=== PATIENT | female | born 1960 | race Caucasian/White ===

== ENCOUNTER 2020-04-19 13:17 | Emergency (ER) | payer MEDICARE, OTHER ==
[~2020-04-19] VITALS: Ht 167.7 cm; Wt 68.3 kg
--- NOTE | 2020-04-19 13:28 | NUR ---
Brought to room ambulatory after stopping at bathroom to request a UA. Pt just voided before arriving and unable to void now. NIBP compromised as patient continues to talk on phone and keeps bending arm, initial read 144/120. Await pt to hand phone up.
[2020-04-19] MEDS ORDERED: LAMO200T5 (13:51)
[2020-04-19] MEDS ORDERED: EXEM25TA4 (13:51)
[2020-04-19] MEDS ORDERED: ACHD5005 (13:51)
[2020-04-19] MEDS ORDERED: CLON1TAB13 (13:51)
[2020-04-19] MEDS ORDERED: OXYB5TAB13 (13:51)
[2020-04-19] MEDS ORDERED: PRAV20TA3 (13:51)
[2020-04-19] MEDS ORDERED: CARI6CAP (13:51)
[2020-04-19] MEDS ORDERED: QUET100T33 (13:51)
[2020-04-19] MEDS ORDERED: LEVO50TA6 (13:51)
[2020-04-19] MEDS ORDERED: BUSP15TA60 (13:51)
[2020-04-19] MEDS ORDERED: NF-ZOL12.5 (13:51)
[2020-04-19] MEDS ORDERED: NITR100C10 (13:51)
[2020-04-19] MEDS ORDERED: SPIR50TA4 (13:51)
[2020-04-19] MEDS ORDERED: CARV12.53 (13:51)
[2020-04-19] MEDS ORDERED: HYDR25TA4 (13:51)
[2020-04-19] MEDS ORDERED: POTA20TA15 (13:51)
[2020-04-19] MEDS ORDERED: GABA-486 (13:51)
[2020-04-19] MEDS ORDERED: FAMO40TA6 (13:51)
[2020-04-19] MEDS ORDERED: LOSARTAN (13:51)
[2020-04-19] MEDS ORDERED: PANT40TA52 (13:51)
--- NOTE | 2020-04-19 13:56 | ED General ---
General Chief Complaint: General Problems/Pain Stated Complaint: FALL; ABD PAIN History of Present Illness Date Seen by Provider: Apr 19, 2020 Time Seen by Provider: 13:40 Initial Comments Patient is a 60-year-old female who presents with epigastric pain and burning the past several hours. Patient has history of ovarian cancer with total hysterectomy, ventral wall hernia repair and recent fall 10 days ago resulting on left-sided rib fractures. Patient states she's been on pain medication does not bowel movement a week. She denies nausea vomiting and is able to pass flatus. No fever chills, flank pain, no urinary frequency urgency or burning. No other acute symptoms or complaints. Patient is currently visiting from out of town and had repairs performed by Dr. Kilo Brasher at [facility]. Timing/Duration: 4-6 Hours Severity: Mild Associated Systoms: Denies Symptoms Allergies and Home Medications Allergies Uncoded Allergies: Tesenex (Adverse Reaction, Unknown, 04/19/20) Patient reports this is med allergic to Patient Home Medication List Home Medication List Reviewed: Yes Review of Systems Review of Systems Constitutional: see HPI EENTM: see HPI Respiratory: see HPI Cardiovascular: see HPI Gastrointestinal: see HPI Genitourinary: see HPI Musculoskeletal: see HPI Skin: see HPI Psychiatric/Neurological: See HPI Hematologic/Lymphatic: See HPI Immunological/Allergic: see HPI All Other Systems Reviewed Negative Unless Noted: Yes Past Weyttup-Grogsc-Xjwfyp Hx Past Med/Social Hx: Reviewed Nursing Past Med/Soc Hx Patient Social History Recent Foreign Travel: No Contact w/Someone Who Travel: No Physical Exam Vital Signs Vital Signs - First Documented 04/19/20 13:28 Temp 36.8 Pulse 126 Resp 18 B/P (MAP) 144/120 (128) Pulse Ox 95 O2 Delivery Room Air Capillary Refill : Height, Weight, BMI Height: '" Weight: lbs. oz. 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 Norm as Tested Reflexes: 4+ Bicep (R), 4+ Bicep (L), 4+ Tricep (R) Skin: Normal Color Lymphatic: No Adenopathy Focused Exam Sepsis Stage: Ruled Out Progress/Results/Core Measures Suspected Sepsis SIRS Temperature: Pulse: Respiratory Rate: Laboratory Tests 04/19/20 14:05: White Blood Count 9.2 Blood Pressure / Mean: Laboratory Tests 04/19/20 14:05: Creatinine 1.15, Platelet Count 576H, Total Bilirubin 0.4 Results/Orders Lab Results Laboratory Tests Test 04/19/20 14:05 04/19/20 14:24 Range/Units White Blood Count 9.2 4.3-11.0 10^3/uL Red Blood Count 3.96 L 4.35-5.85 10^6/uL Hemoglobin 12.5 11.5-16.0 G/DL Hematocrit 37 35-52 % Mean Corpuscular Volume 94 80-99 FL Mean Corpuscular Hemoglobin 32 25-34 PG Mean Corpuscular Hemoglobin Concent 34 32-36 G/DL Red Cell Distribution Width 13.1 10.0-14.5 % Platelet Count 576 H 130-400 10^3/uL Mean Platelet Volume 8.4 7.4-10.4 FL Immature Granulocyte % (Auto) 3 % Neutrophils (%) (Auto) 63 42-75 % Lymphocytes (%) (Auto) 23 12-44 % Monocytes (%) (Auto) 9 0-12 % Eosinophils (%) (Auto) 1 0-10 % Basophils (%) (Auto) 1 0-10 % Neutrophils # (Auto) 5.8 1.8-7.8 X 10^3 Lymphocytes # (Auto) 2.1 1.0-4.0 X 10^3 Monocytes # (Auto) 0.9 0.0-1.0 X 10^3 Eosinophils # (Auto) 0.1 0.0-0.3 10^3/uL Basophils # (Auto) 0.1 0.0-0.1 10^3/uL Immature Granulocyte # (Auto) 0.3 H 0.0-0.1 10^3/uL Sodium Level 133 L 135-145 MMOL/L Potassium Level 4.2 3.6-5.0 MMOL/L Chloride Level 97 L 98-107 MMOL/L Carbon Dioxide Level 28 21-32 MMOL/L Anion Gap 8 5-14 MMOL/L Blood Urea Nitrogen 18 7-18 MG/DL Creatinine 1.15 0.60-1.30 MG/DL Estimat Glomerular Filtration Rate 48 BUN/Creatinine Ratio 16 Glucose Level 84 70-105 MG/DL Calcium Level 8.8 8.5-10.1 MG/DL Corrected Calcium 8.8 8.5-10.1 MG/DL Total Bilirubin 0.4 0.1-1.0 MG/DL Aspartate Amino Transf (AST/SGOT) 17 5-34 U/L Alanine Aminotransferase (ALT/SGPT) 13 0-55 U/L Alkaline Phosphatase 85 40-136 U/L C-Reactive Protein 0.14 <0.50 MG/DL Total Protein 6.4 6.4-8.2 GM/DL Albumin 4.0 3.2-4.5 GM/DL Lipase 79 H 8-78 U/L Urine Color YELLOW Urine Clarity CLEAR Urine pH 7.0 5-9 Urine Specific [place] 1.015 L 1.016-1.022 Urine Protein NEGATIVE NEGATIVE Urine Glucose (UA) NEGATIVE NEGATIVE Urine Ketones NEGATIVE NEGATIVE Urine Nitrite NEGATIVE NEGATIVE Urine Bilirubin NEGATIVE NEGATIVE Urine Urobilinogen 0.2 < = 1.0 MG/DL Urine Leukocyte Esterase 1+ H NEGATIVE Urine RBC (Auto) NEGATIVE NEGATIVE Urine RBC 0-2 /HPF Urine WBC 5-10 H /HPF Urine Squamous Epithelial Cells 2-5 /HPF Urine Crystals NONE /LPF Urine Bacteria TRACE /HPF Urine Casts NONE /LPF Urine Mucus NEGATIVE /LPF Urine Culture Indicated YES My Orders Orders - MORE JEFFERS DO Cbc With Automated Diff (04/19/20 13:49) Comprehensive Metabolic Panel (04/19/20 13:49) Lipase (04/19/20 13:49) Crp Fs (04/19/20 13:49) Ua Culture If Indicated (04/19/20 13:49) Acute Abd Series (04/19/20 13:49) Urine Culture (04/19/20 14:24) Vital Signs/I&O 04/19/20 13:28 Temp 36.8 Pulse 126 Resp 18 B/P (MAP) 144/120 (128) Pulse Ox 95 O2 Delivery Room Air Capillary Refill : Departure Communication (Admissions) Acute abdominal series: No bowel obstruction Lab and imaging studies reviewed. No obvious abnormalities with exception of constipation. Abdomen soft nonsurgical. Patient ate just prior to coming in the emergency department and took her psychotropic medications likely contributing to moderately low blood pressure. She is asymptomatic when standing and walking around the ED. Will discharge with instructions to treat constipation follow up with PCP for further evaluation of abdominal pain. Return precautions reviewed. Patient verbalizes understanding agreement discharge instructions prior to departure. Impression Primary Impression: Abdominal pain Additional Impression: Constipation Disposition: HOME, SELF-CARE Condition: Stable Departure-Patient Inst. Referrals: NO,LOCAL PHYSICIAN (PCP) Primary Care Physician Patient Instructions: Constipation, Adult ED Add. Discharge Instructions: You were evaluated in the emergency department for abdominal pain. Lab and imaging studies were performed and are nondiagnostic. Please increase fluids and drink one bottle of magnesium citrate twice daily for the next 3 days. Follow-up with your PCP for reevaluation. All discharge instructions reviewed with patient and/or family. Voiced understanding. MORE JEFFERS DO Apr 19, 2020 13:56
--- NOTE | 2020-04-19 14:15 | NUR ---
Returned from xray via WC. Patient is on phone again and wishes monitors not applied at this time.
--- NOTE | 2020-04-19 14:25 | Diagnostic Imaging Report ---
INDICATION: Fall and abdominal pain. TIME OF EXAM: 02:07 p.m. FINDINGS: The heart size is normal. Lungs are clear apart from minimal atelectasis in the left base. No pneumothorax is identified. There is no free air. There are postop changes in the abdomen. Bowel gas pattern appears nonobstructed. There is moderate stool in the right colon. No pathologic calcifications are seen. There do appear to be fractures involving the lower left anterior approximately seventh, eighth, and ninth ribs. IMPRESSION: 1. Left-sided rib fractures. There is minimal atelectasis in the left base. No pneumothorax is seen. 2. Moderate stool in the right colon. No acute feature in the abdomen is identified. Dictated by: Dictated on workstation # [id number]
[2020-04-19 14:35] LABS: HEMATOCRIT 37 % (35-52); HEMOGLOBIN 12.5 G/DL (11.5-16.0); LYMPHOCYTES % (AUTO) 23 % (12-44); MEAN CORPUSCULAR HEMOGLOBIN 32 PG (25-34); MEAN CORPUSCULAR HGB CONC 34 G/DL (32-36); MEAN CORPUSCULAR VOLUME 94 FL (80-99); MEAN PLATELET VOLUME 8.4 FL (7.4-10.4); MONOCYTES % (AUTO) 9 % (0-12); NEUTROPHILS % (AUTO) 63 % (42-75); PLATELET COUNT 576 10^3/uL (130-400); WHITE BLOOD COUNT 9.2 10^3/uL (4.3-11.0)
[2020-04-19 14:36] LABS: BASOPHILS # (AUTO) 0.1 10^3/uL (0.0-0.1); BASOPHILS % (AUTO) 1 % (0-10); EOSINOPHILS # (AUTO) 0.1 10^3/uL (0.0-0.3); EOSINOPHILS % (AUTO) 1 % (0-10); LYMPHOCYTES # (AUTO) 2.1 X 10^3 (1.0-4.0); MONOCYTES # (AUTO) 0.9 X 10^3 (0.0-1.0); NEUTROPHILS # (AUTO) 5.8 X 10^3 (1.8-7.8)
[2020-04-19 14:37] LABS: BILIRUBIN,TOTAL 0.4 MG/DL (0.1-1.0); CALCIUM 8.8 MG/DL (8.5-10.1); CREATININE SERUM 1.15 MG/DL (0.60-1.30); POTASSIUM 4.2 MMOL/L (3.6-5.0)
[2020-04-19 14:38] LABS: TOTAL PROTEIN 6.4 GM/DL (6.4-8.2)
--- NOTE | 2020-04-19 14:45 | NUR ---
Pt calling out "you who?" from room. ntered room fro patient asking why she is not ready to leave. Explained labs were taking longer with numerous patients in ER and currently lab pending for UA result that she just voided 1435 after inability since arrival. Pt again immediately on phone. 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 Pt states 2 BP meds in those. Pt states normal BP 100/50-60. Pt is asymptomatic of NIBP's with systolic upper 80's.
--- NOTE | 2020-04-19 14:50 | NUR ---
Notified Dr of patient's wanting to be finished up as soon as possible.
[2020-04-19 14:57] LABS: BACTERIA,URINE TRACE /HPF; BILIRUBIN,URINE NEGATIVE (NEGATIVE); CLARITY,URINE CLEAR; COLOR,URINE YELLOW; GLUCOSE, URINE (UA) NEGATIVE (NEGATIVE); KETONES,URINE NEGATIVE (NEGATIVE); LEUKOCYTE ESTERASE ,URINE 1+ (NEGATIVE); NITRITE,URINE NEGATIVE (NEGATIVE); PROTEIN,URINE NEGATIVE (NEGATIVE); RBC,URINE 0-2 /HPF
[2020-04-19 15:10] VITALS: BP 85/56
--- NOTE | 2020-04-19 15:10 | NUR ---
Pt discharged at this time to home with no new verbalized complaints and reporting apology for her ride is impatiently waiting and she feels hurried to need to leave because of this.
== END 2020-04-19 15:10 | disposition home or self-care (01) ==
LOC: ER FS 13:21
DX: R10.13 Epigastric pain (principal); K59.00 Constipation, unspecified; F41.9 Anxiety disorder, unspecified; Z88.8 Allergy status to other drugs, medicaments and biological substances
CPT/HCPCS: 36415; 74022; 80053; 81000; 83690; 85025; 86141; 87077; 87088

== ENCOUNTER 2021-04-29 12:51 | Emergency (ER) | payer MEDICARE ==
[~2021-04-29] VITALS: Ht 165 cm; Wt 75.0 kg
[~2021-04-29 12:51] MED LIST: ACHD5005; BUSP15TA60; CARI6CAP; CARV12.53; CLON1TAB13; EXEM25TA4; FAMO40TA6; GABA-486; HYDR25TA4; LAMO200T5; LEVO50TA6; LOSARTAN; NF-ZOL12.5; NITR100C10; OXYB5TAB13; PANT40TA52; POTA-179; PRAV20TA3; QUET100T33; SPIR50TA4
--- OUTSIDE RECORDS SUMMARY | 2021-04-29 12:58 | XMS REPORT | Clinical Summary ---
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 Causes anaphylaxis. Other Anaphylaxis High 07/31/2016 Medications End Date Status Medication Sig Dispensed Refills Start Date Active valsartan (DIOVAN) 160 MG Take 160 mg 0 tablet by mouth daily. Active spironolactone Take 25 mg by 0 (ALDACTONE) 25 MG tablet mouth 2 (two) times daily. Active levothyroxine (SYNTHROID, Take 88 mcg 0 LEVOTHROID) 88 MCG tablet by mouth every morning before breakfast. Active anastrozole (ARIMIDEX) 1 Take 1 mg by 0 MG tablet mouth daily. Active metFORMIN (GLUCOPHAGE) Take 500 mg 0 500 MG tablet by mouth daily. Active busPIRone (BUSPAR) 10 MG Take 2 180 tablet 0 0 tabletIndications: tablets (20 7 Anxiety Disorder, mg total) by Generalized Anxiety mouth 3 Disorder (three) times daily. Indications: Anxiety Disorder, Generalized Anxiety Disorder Active clonazePAM (KLONOPIN) 0.5 Take 1 tablet 42 tablet 0 MG tabletIndications: (0.5 mg 7 anxiety total) by mouth 3 (three) times daily. Indications: anxiety Do not exceed a daily dose of 1.5 mg Active gabapentin (NEURONTIN) Take 1 90 capsule 0 400 MG capsule (400 7 capsuleIndications: mg total) by Neuropathic Pain mouth 3 (three) times daily. Indications: Neuropathic Pain Active metFORMIN (GLUCOPHAGE) Take 1 tablet 30 tablet 0 0 500 MG tabletIndications: (500 mg 7 Type 2 Diabetes Mellitus total) by mouth daily. Indications: Type 2 Diabetes Active asenapine (SAPHRIS) [address] 1 60 tablet 0 SL tabletIndications: tablet (10 mg 7 Bipolar Mood Disorder total) under the tongue 2 (two) times daily. Indications: Manic-Depress ion Active levothyroxine (SYNTHROID, Take 1 tablet 30 tablet 0 LEVOTHROID) 88 MCG (88 mcg 7 tabletIndications: total) by Hypothyroidism mouth every morning before breakfast. Indications: Underactive Thyroid Active oxyCODONE (ROXICODONE) 5 Take 1.5 30 tablet 0 0 MG immediate release tablets (7.5 7 tabletIndications: Acute mg total) by Pain mouth every 6 (six) hours as needed for Severe Pain. Indications: Acute Pain Do not exceed a daily dose of 30 mg Active Problems Problem Noted Date Alcohol use disorder 08/03/2016 Panic disorder with agoraphobia 08/03/2016 Severe depressed bipolar I disorder without psychotic features 07/31/2016 PTSD (post-traumatic stress disorder) 07/31/2016 Resolved Problems Problem Noted Date Resolved Date Suicidal ideations 07/31/2016 08/06/2016 Immunizations Name Administration Dates Next Due Influenza IIV3 PFree 05/21/2016 Social History Date Tobacco Use Types Packs/Day Years Used Never Smoker Comments Alcohol Use Standard Drinks/Week Last drink 2 weeks ago Yes 6 (1 standard drink = 0.6 o z pure alcohol) Alcohol Habits Answer Date Recorded How often do you have a drink containing alcohol? No t asked How many drinks containing alcohol do you have on No t asked a typical day when you are drinking? How often do you have six or more drinks on one Not asked occasion? Comment: Last drink 2 weeks ago 07/31/2016 [employer] Comments Sexually Active Not Currently Sex Assigned at Date Recorded Not on file Last Filed Vital Signs Reading Time Taken Comments Vital Sign 86/46 08/06/2016 8:58 AM CDT Blood Pressure 108 08/06/2016 8:58 AM CDT Pulse 36.9 C (98.5 F) 08/06/2016 8:30 AM CDT Temperature 19 08/06/2016 8:30 AM CDT Respiratory Rate 100% 08/06/2016 8:30 AM CDT Oxygen Saturation - - Inhaled Oxygen Concentration 72.6 kg (160 lb) 07/31/2016 4:09 AM CDT Weight 167.6 cm (5' 6") 07/31/2016 4:09 AM CDT Height 25.82 07/31/2016 4:09 AM CDT Body Mass Index Plan of Treatment Health Maintenance Due Date Last Done Comments COVID-19 Vaccine (1) 1970 Annual Wellness Visit 02/05/1976 Hepatitis C Screening 02/05/1976 DTaP,Tdap,and Td Vaccines 1977 (1 - Tdap) MMR Vaccines-Adult 1977 Cervical Cancer Screening 1979 Breast Cancer 02/05/2008 Screening-Mammogram Colon Cancer Screening 02/05/2008 Zoster Vaccine (1 of 2) 02/05/2008 Influenza Vaccine (#1) 2021 05/21/2016 Pneumo-Vaccine: 65+Yrs (1 2023 of 1 - PPSV23) HIB Vaccines Aged Out No longer eligible based on patient's age to complete this topic IPV Vaccines Aged Out No longer eligible based on patient's age to complete this topic Meningococcal Vaccine Aged Out No longer eligib le based on patient's age to complete this topic Pneumo-Vaccine: Peds (0-5 Aged Out No longer el igible based on patient's age to Yrs) & At-Risk Patients complete this topic (6-64 Yrs) Rotavirus Vaccines Aged Out No longer eligible based on patient's age to complete this topic Results Not on filefrom Last 3 Months Insurance Type Payer Benefit Subscriber ID Effective Phone Address Plan / Dates Group Medicare MEDICARE MEDICARE [id number] 2016- [address] [place] [address] Advance Directives For more information, please contact: [phone] Patient [employer] 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
--- OUTSIDE RECORDS SUMMARY | 2021-04-29 12:59 | XMS REPORT | Clinical Summary ---
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
--- OUTSIDE RECORDS SUMMARY | 2021-04-29 12:59 | XMS REPORT | Clinical Summary ---
Author Author [facility] Organization [facility] Address Unknown Phone Unavailable Care Team Providers Care Mediation Commissioner Name Role Phone Sandy Gill MD [phone] Fatmata Hogan MD Unavailable Unavailable Ed Salazar MD Unavailable Malathi Kendrick PCP Unavailable Source Comments Some departments are not documenting in the electronic medical record. If you d o not see the information that you expected, contact Release of Information in [facility] [employer] Information Management department at [phone] for further assistan ce in locating additional records.[facility] Allergies Comments Active Allergy Reactions Severity Noted Date "some type of cough medication" caused throat swelling. Dextromethorphan Hbr ANAPHYLAXIS High 5 Medications End Date Status Medication Sig Dispensed Refills Start Date Active diltiazem SR (+) Take 120 mg 0 (CARDIZEM SR) 120 mg by mouth capsule daily. Active lamoTRIgine (LAMICTAL) Take 200 mg 0 200 mg tablet by mouth twice daily. Active levothyroxine (SYNTHROID) Take 50 mcg 0 50 mcg tablet by mouth daily 30 minutes before breakfast. Active diclofenac(+) (VOLTAREN) Apply 4 g 0 1 % topical gel topically to affected area four times daily as needed. Active zolpidem (AMBIEN) 10 mg Take 10 mg by 0 tablet mouth at bedtime as needed for Sleep. Active cholecalciferol(+) Take 5,000 0 (VITAMIN D-3) 5,000 unit Units by tablet mouth daily. Active cariprazine 1.5 mg Take by 0 capIndications: smiley mouth daily. associated with bipolar disorder Active QUEtiapine (SEROQUEL) 200 Take 200 mg 0 mg tablet by mouth twice daily. Active losartan(+) (COZAAR) 100 Take 100 mg 0 mg tablet by mouth daily. Active HYDROcodone/acetaminophen Take 1 tablet 0 (NORCO) 5/325 mg tablet by mouth every 6 hours as needed for Pain Active aspirin EC 81 mg tablet Take 81 mg by 0 mouth daily. Take with food. Active anastrozole (ARIMIDEX) 1 Take 1 mg by 0 mg tablet mouth daily. Active busPIRone (BUSPAR) 10 mg Take 10 mg by 0 tablet mouth three times daily. Active gabapentin (NEURONTIN) Take 100 mg 0 100 mg capsule by mouth three times daily. Active spironolactone Take 25 mg by 0 (ALDACTONE) 25 mg tablet mouth twice daily. Take with food. Active clonazePAM (KLONOPIN) 1 Take 1 mg by 0 mg tablet mouth four times daily. Active Problems Problem Noted Date Malignant neoplasm of upper-outer quadrant of right f emale breast 05/01/2015 Cancer Staging: Pathologic: Stage IIA ( T2, N0, cM0) - Signed by Fatmata Hogan MD on 05/01/2015 Surgical History Surgery Date Site/Laterality Comments LIZZETH AND BSO 05/11/2007 - Ovarian ca. Omentec andreas. 05/10/2008 ABDOMINAL HERNIA REPAIR 08/10/2017 ventral incisi onal/umbilical hernia with mesh TUNNELED VENOUS PORT 05/11/2007 - Removed PLACEMENT 05/10/2008 BREAST BIOPSY 03/01/15 Right IDC MASTECTOMY, PARTIAL 04/19/15 Right IDC and DC IS. + margin. LYMPH NODE BIOPSY 04/19/15 Right negative BREAST SURGERY 05/02/15 Right clear margin COLONOSCOPY '06, ' & 2009 benign polyps. 2018 WNL (repeat in 7 years). 11/25/17 Dr Juve Bhatt HERNIA REPAIR 12/09/2017 - 01/08/2018 Medical History Medical History Date Comments Ovarian cancer (HCC) 2007 Stage III B Grade 3 Papillary serous carcinoma. Hx antineoplastic chemotherapy 2007 adjuvan t chemo 6 cycles Carbo/Taxol with Dr Carcamo Bipolar affective disorder (HCC) with anxiety Fibromyalgia Hypertension Hypercholesteremia Hypothyroidism Sleep apnea, obstructive Recommended CPAP Pulmonary embolism (HCC) 08/2013 IV heparin an d 6months Coumadin IBS (irritable bowel syndrome) Breast cancer, right (HCC) 02/2015 IDC ER/RI+, HER-2 negative and Ki-67=15%. BRCA negative 03/2015 Oncotype= 9 History of therapeutic radiation 05/23/2015-0 R esdras ast 07/19/2015 Use of anastrozole (Arimidex) 08/2015 Dr Cardona ill. Pt stopped on her own 07/2016. Restarted after a brief drug holiday. Injury of arm 06/2016 fell at home Colon polyp 2009 Right knee pain 11/2017 Dr Jennifer wild'd wit h injection and PT. Alcoholic (HCC) inpt rehab and AA in the [facility]. CKD (chronic kidney disease), stage 2017 III (HCC) Family History Medical History Relation Name Comments Hypertension Brother Hypertension Brother Heart Attack Father Cancer-Breast Maternal Bilat Mastectomies at [facility] 1951 Grandmother Cancer-Colon Maternal Uncle Diabetes Mother Hypertension Mother Thyroid Disease Mother Relation Name Status Comments Brother Alive Brother Alive Brother Alive Father Maternal Grandmother Maternal Uncle Mother Alive Social History Date Tobacco Use Types Packs/Day Years Used Never Smoker Smokeless Tobacco: Never Used Comments Alcohol Use Standard Drinks/Week Vodka every other day. Hx inpt rehab and AA. Yes 4 (1 standard drink = 0.6 o z pure alcohol) Alcohol Habits Answer Date Recorded How often do you have a drink containing alcohol? No t asked How many drinks containing alcohol do you have on No t asked a typical day when you are drinking? How often do you have six or more drinks on one Not asked occasion? Comment: Vodka every other day. Hx inpt 018 rehab and AA. Sex Assigned at Date Recorded Not on file Last Filed Vital Signs Reading Time Taken Comments Vital Sign 90/61 03/04/2018 1:54 PM CDT Blood Pressure 82 03/04/2018 1:54 PM CDT Pulse 36.6 C (97.8 F) 03/04/2018 1:54 PM CDT Temperature 18 03/04/2018 1:54 PM CDT Respiratory Rate 96% 03/04/2018 1:54 PM CDT Oxygen Saturation - - Inhaled Oxygen Concentration 65.9 kg (145 lb 3.2 oz) 03/04/2018 1:54 PM CDT Weight 167.6 cm (5' 6") 03/04/2018 1:54 PM CDT Height 23.44 03/04/2018 1:54 PM CDT Body Mass Index Plan of Treatment Health Maintenance Due Date Last Done Comments MEDICARE ANNUAL WELLNESS 1958 VISIT HIV SCREENING 1973 DTAP/TDAP VACCINES (1 - 02/05/1976 Tdap) HEPATITIS C SCREENING 02/05/1976 PHYSICAL (COMPREHENSIVE) 02/05/1976 EXAM CERVICAL CANCER SCREENING 1979 BREAST CANCER SCREENING 1998 COLORECTAL CANCER 02/05/2008 SCREENING SHINGLES RECOMBINANT 02/05/2008 VACCINE (1 of 2) INFLUENZA VACCINE 12/09/2020 Results Not on filefrom Last 3 Months Insurance Type Payer Benefit Subscriber ID Effective Phone Address Plan / Dates Group Medicare MEDICARE MEDICARE [id number] 1995-P [phone] [address] [place] [address] Medicaid [facility] MEDICAID [facility] [id number] 2017-P [address] [place] [address] (Home) [address] [place] [address] Advance Directives Patient Obiee Lead Developer Explanation Type Date Recorded Advance 04/12/2015 2:44 PM Directive/DPOA Care Teams Start Date End Date Mediation Commissioner Relationship Specialty 02/22/18 Malathi Kendrick PCP - General 04/12/15 Sandy Gill MD REFERRING MD Oncology [address] [place], [place] [id number] 05/01/15 Fatmata Hogan MD Radiation Forwarding Address Oncology Unknown 08/14/15 Ed Salazar MD Hematology, [address] [place] [address]
[2021-04-29] MEDS ORDERED: fentaNYL INJ 100 MCG/2 ML AMP IVP ONE (14:00)
[2021-04-29 14:05] LABS: BASOPHILS % (AUTO) 1 % (0-10); EOSINOPHILS # (AUTO) 0.3 10^3/uL (0.0-0.3); EOSINOPHILS % (AUTO) 5 % (0-10); HEMATOCRIT 37 % (35-52); HEMOGLOBIN 12.6 g/dL (11.5-16.0); LYMPHOCYTES # (AUTO) 1.5 10^3/uL (1.0-4.0); LYMPHOCYTES % (AUTO) 25 % (12-44); MEAN CORPUSCULAR HEMOGLOBIN 32 pg (25-34); MEAN CORPUSCULAR HGB CONC 34 g/dL (32-36); MEAN CORPUSCULAR VOLUME 94 fL (80-99); MEAN PLATELET VOLUME 9.2 fL (9.0-12.2); MONOCYTES # (AUTO) 0.6 10^3/uL (0.0-1.0); MONOCYTES % (AUTO) 10 % (0-12); NEUTROPHILS # (AUTO) 3.5 10^3/uL (1.8-7.8); NEUTROPHILS % (AUTO) 59 % (42-75); PLATELET COUNT 346 10^3/uL (130-400); WHITE BLOOD COUNT 5.8 10^3/uL (4.3-11.0)
[2021-04-29 14:15] LABS: ALBUMIN 4.3 GM/DL (3.2-4.5); POTASSIUM 4.3 MMOL/L (3.6-5.0)
[2021-04-29 14:16] LABS: CALCIUM 9.5 MG/DL (8.5-10.1)
[2021-04-29 14:19] LABS: BILIRUBIN,TOTAL 0.3 MG/DL (0.1-1.0)
[2021-04-29 14:21] LABS: CREATININE SERUM 1.05 MG/DL (0.60-1.30)
[2021-04-29 14:45] LABS: FREE T4 (FREE THYROXINE) 0.94 NG/DL (0.70-1.48)
[2021-04-29] MEDS ORDERED: HOLD METFORMIN - RECEIVED CONTRAST 20 ML VIAL IV SCH (14:45)
[2021-04-29] MEDS ORDERED: IOHEXOL 350 MG/ML 100 ML (OMNIPAQUE 350) VIAL IV ONE (14:45)
[2021-04-29] MEDS ORDERED: NS 100 ML (IVPB) BAG IV ONE (14:45)
--- NOTE | 2021-04-29 15:13 | Diagnostic Imaging Report ---
PROCEDURE: CT abdomen and pelvis with contrast. TECHNIQUE: Multiple contiguous axial images were obtained through the abdomen and pelvis after administration of intravenous contrast. Auto Exposure Controls were utilized during the CT exam to meet ALARA standards for radiation dose reduction. All CT scans use one or more of the following dose optimizing techniques: automated exposure control, MA and/or KvP adjustment based on patient size and exam type or iterative reconstruction. INDICATION: Lower back pain. COMPARISON: None. FINDINGS: The lung bases are clear. The gallbladder, solid organs, vascular structures, and bowel are unremarkable. There is no free air or free fluid. The appendix is normal. The uterus is surgically absent. The urinary bladder is unremarkable. No inflammation is identified. There is an age indeterminate L1 compression fracture. Please correlate with point tenderness. Consider MRI. IMPRESSION: 1. Negative CT abdomen and pelvis. No acute abnormality is identified. 2. Age-indeterminate L1 compression fracture. A nonemergent MRI is recommended. Dictated by: Dictated on workstation # [id number]
[2021-04-29] MEDS ORDERED: TRAM-42 PO (15:42)
[2021-04-29 15:43] LABS: BILIRUBIN,URINE NEGATIVE (NEGATIVE); CLARITY,URINE CLEAR; COLOR,URINE YELLOW; GLUCOSE, URINE (UA) NEGATIVE (NEGATIVE); KETONES,URINE NEGATIVE (NEGATIVE); LEUKOCYTE ESTERASE ,URINE 1+ (NEGATIVE); NITRITE,URINE NEGATIVE (NEGATIVE); PH,URINE 5.5 (5-9); PROTEIN,URINE NEGATIVE (NEGATIVE)
--- NOTE | 2021-04-29 15:45 | ED General ---
General Chief Complaint: Hip/Pelvic Problems Stated Complaint: L HIP PAIN, BILAT LEG SWELLING Nursing Triage Note: PT AMB TO RM FT2 W CO OF L HIP PAIN 7/10 FOR APPROX 5 DAYS, DENIES INJURY. PT CO OF BOTH ANKLES BEING SWOLLEN, WEARING BOOTS W NO SOCKS. STATES BOTH ANKLES SWOLLEN AND R ANKLE HAS PAIN 6/10. Source of Information: Patient Exam Limitations: No Limitations History of Present Illness Date Seen by Provider: Apr 29, 2021 Time Seen by Provider: 13:28 Initial Comments This 61-year-old woman presents to the emergency room accompanied by a male video system repairer with primary complaint of lower extremity edema as well as pain across the lower back and into the left hip. Symptoms have been present for about 5 days. She is down here visiting her friend but normally receives her primary care in the [facility]. She has some history of low back pain but states this pain feels different and is less focused on the lower lumbar spine or sacral a adrienne and more diffuse around the lower back. She denies any strenuous activity or injury. Patient has history of both breast cancer and ovarian cancer. She has not had a scan in quite some time. She follows with oncology in the [facility]. 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 Patient describes urinary frequency without dysuria or hematuria. Patient denies any bowel or bladder dysfunction, groin paresthesias or true weakness of the legs Allergies and Home Medications Allergies Uncoded Allergies: Tesenex (Adverse Reaction, Unknown, 04/19/20) Patient reports this is med allergic to Patient Home Medication List Home Medication List Reviewed: Yes Buspirone HCl (Buspirone HCl) 15 Mg Tablet, (Reported) Entered as Reported by: CECIL CANCHOLA on 04/19/20 1351 Cariprazine Hydrochloride (Vraylar) 6 Mg Capsule, (Reported) Entered as Reported by: CECIL CANCHOLA on 04/19/20 1351 Carvedilol (Carvedilol) 12.5 Mg Tablet, (Reported) Entered as Reported by: CECIL CANCHOLA on 04/19/20 1351 Clonazepam (Clonazepam) 1 Mg Tablet, (Reported) Entered as Reported by: CECIL CANCHOLA on 04/19/20 1351 Exemestane (Exemestane) 25 Mg Tablet, (Reported) Entered as Reported by: CECIL CANCHOLA on 04/19/20 135 Famotidine (Famotidine) 40 Mg Tablet, (Reported) Entered as Reported by: CECIL CANCHOLA on 04/19/20 135 Gabapentin (Gabapentin) 100 Mg Capsule, (Reported) Entered as Reported by: CECIL CANCHOLA on 04/19/20 135 Hydrochlorothiazide (Hydrochlorothiazide) 25 Mg Tablet, (Reported) Entered as Reported by: CECIL CANCHOLA on 04/19/20 135 Hydrocodone/Acetaminophen (Hydrocodone-Acetamin 5-325 mg) 1 Each Tablet, (Reported) Entered as Reported by: CECIL CANCHOLA on 04/19/201350 Lamotrigine (Lamotrigine) 200 Mg Tablet, (Reported) Entered as Reported by: CECIL CANCHOLA on 04/19/201350 Levothyroxine Sodium (Levothyroxine Sodium) 50 Mcg Tablet, (Reported) Entered as Reported by: CECIL CANCHOLA on 04/19/20 135 Nitrofurantoin Monohyd/M-Cryst (Nitrofurantoin [place]-Mcr 100 mg) 100 Mg Capsule, (Reported) Entered as Reported by: CECIL CANCHOLA on 04/19/20 135 Oxybutynin Chloride (Oxybutynin Chloride) 5 Mg Tablet, (Reported) Entered as Reported by: CECIL CANCHOLA on 04/19/201350 Pantoprazole Sodium (Pantoprazole Sodium) 40 Mg Tablet.dr, (Reported) Entered as Reported by: CECIL CANCHOLA on 04/19/20 135 Potassium Chloride (Potassium Chloride) 20 Meq Tab.er.prt, (Reported) Entered as Reported by: CECIL CANCHOLA on 04/19/20 135 Pravastatin Sodium (Pravastatin Sodium) 20 Mg Tablet, (Reported) Entered as Reported by: CECIL CANCHOLA on 04/19/20 135 Quetiapine Fumarate (Quetiapine Fumarate) 100 Mg Tablet, (Reported) Entered as Reported by: CECIL CANCHOLA on 04/19/20 135 Spironolactone (Spironolactone) 50 Mg Tablet, (Reported) Entered as Reported by: CECIL CANCHOLA on 04/19/20 1351 Tramadol HCl (Ultram) 50 Mg Tablet, 50 MG PO QID PRN for PAIN-BREAKTHROUGH Prescribed by: JANES BARAHONA on 04/29/21 1544 Zolpidem Tartrate (Zolpidem Tartrate ER) 12.5 Mg Tab.mphase, (Reported) Entered as Reported by: CECIL CANCHOLA on 04/19/20 135 [Losartan] , (Reported) Entered as Reported by: CECIL CANCHOLA on 04/19/20 135 Review of Systems Review of Systems Constitutional: no symptoms reported EENTM: no symptoms reported Respiratory: no symptoms reported Cardiovascular: see HPI, edema Gastrointestinal: no symptoms reported Genitourinary: frequency : No Musculoskeletal: see HPI Skin: no symptoms reported Psychiatric/Neurological: See HPI Hematologic/Lymphatic: No Symptoms Reported Immunological/Allergic: no symptoms reported Past [id number]-Hqgems-Mjzfhg Hx Patient Social History Tobacco Use?: No Substance use?: No Alcohol Use?: No Pt feels they are or have been: No Seasonal Allergies Seasonal Allergies: No Past Medical History Surgeries: Yes (Hernia x 2, Ovarian Ca surgery, Lumpectomy R breast) Breast (Right lumpectomy), Hysterectomy Respiratory: No Cardiac: Yes High Cholesterol, Hypertension Neurological: No : No Genitourinary: No Gastrointestinal: Yes (GERD) Gastroesophageal Reflux Musculoskeletal: Yes (Recent rib fxs) Chronic Back Pain, Fractures Endocrine: Yes Hypothyroidsim HEENT: No Cancer: Yes Breast, Ovarian Did You Recieve Any Treatments: Yes What Type of Treatment Did You: Chemotherapy, Radiation, Surgical Intervention Psychosocial: Yes Sleep Difficulties, Anxiety, Bipolar Integumentary: No Blood Disorders: No Physical Exam Vital Signs Vital Signs - First Documented 04/29/21 13:00 Temp 36.4 Pulse 68 Resp 18 B/P (MAP) 98/61 (73) Pulse Ox 99 Capillary Refill : Less Than 3 Seconds Height, Weight, BMI Height: '" Weight: lbs. oz. kg; 27.00 BMI Method: General Appearance: No Apparent Distress, WD/WN HEENT: PERRL/EOMI, Normal ENT Inspection Neck: Normal Inspection, Non Tender Respiratory: Lungs Clear, Normal Breath Sounds, No Accessory Muscle Use Cardiovascular: Regular Rate, Rhythm, No Edema, No Murmur, Normal Peripheral Pulses Gastrointestinal: Normal Bowel Sounds, Non Tender, Soft Back: Vertebral Tenderness (Around the lower lumbar spine and upper sacral region with tenderness in the paraspinous muscles as well) Extremity: Non Tender, Pedal Edema, Other (No pain with rotation of the hips or palpation of the hips) Neurologic/Psychiatric: Alert, Oriented x3, No Motor/Sensory Deficits, Normal Mood/Affect, band lining bander II-XII Norm as Tested Skin: Normal Color, Warm/Dry Progress/Results/Core Measures Suspected Sepsis SIRS Temperature: Pulse: 68 Respiratory Rate: 18 Laboratory Tests 04/29/21 13:55: White Blood Count 5.8 Blood Pressure 98 /61 Mean: 73 Laboratory Tests 04/29/21 13:55: Creatinine 1.05, Platelet Count 346, Total Bilirubin 0.3 Results/Orders Lab Results Laboratory Tests Test 04/29/21 13:55 04/29/21 15:34 Range/Units White Blood Count 5.8 4.3-11.0 10^3/uL Red Blood Count 3.97 3.80-5.11 10^6/uL Hemoglobin 12.6 11.5-16.0 g/dL Hematocrit 37 35-52 % Mean Corpuscular Volume 94 80-99 fL Mean Corpuscular Hemoglobin 32 25-34 pg Mean Corpuscular Hemoglobin Concent 34 32-36 g/dL Red Cell Distribution Width 12.8 10.0-14.5 % Platelet Count 346 130-400 10^3/uL Mean Platelet Volume 9.2 9.0-12.2 fL Immature Granulocyte % (Auto) 0 % Neutrophils (%) (Auto) 59 42-75 % Lymphocytes (%) (Auto) 25 12-44 % Monocytes (%) (Auto) 10 0-12 % Eosinophils (%) (Auto) 5 0-10 % Basophils (%) (Auto) 1 0-10 % Neutrophils # (Auto) 3.5 1.8-7.8 10^3/uL Lymphocytes # (Auto) 1.5 1.0-4.0 10^3/uL Monocytes # (Auto) 0.6 0.0-1.0 10^3/uL Eosinophils # (Auto) 0.3 0.0-0.3 10^3/uL Basophils # (Auto) 0.0 0.0-0.1 10^3/uL Immature Granulocyte # (Auto) 0.0 0.0-0.1 10^3/uL Sodium Level 139 135-145 MMOL/L Potassium Level 4.3 3.6-5.0 MMOL/L Chloride Level 102 98-107 MMOL/L Carbon Dioxide Level 26 21-32 MMOL/L Anion Gap 11 5-14 MMOL/L Blood Urea Nitrogen 16 7-18 MG/DL Creatinine 1.05 0.60-1.30 MG/DL Estimat Glomerular Filtration Rate 53 BUN/Creatinine Ratio 15 Glucose Level 84 70-105 MG/DL Calcium Level 9.5 8.5-10.1 MG/DL Corrected Calcium 9.3 8.5-10.1 MG/DL Total Bilirubin 0.3 0.1-1.0 MG/DL Aspartate Amino Transf (AST/SGOT) 19 5-34 U/L Alanine Aminotransferase (ALT/SGPT) 13 0-55 U/L Alkaline Phosphatase 82 40-136 U/L B-Type Natriuretic Peptide 42.7 <100.0 PG/ML Total Protein 7.0 6.4-8.2 GM/DL Albumin 4.3 3.2-4.5 GM/DL Thyroid Stimulating Hormone (TSH) 2.26 0.35-4.94 UIU/ML Free Thyroxine 0.94 0.70-1.48 NG/DL Urine Color YELLOW Urine Clarity CLEAR Urine pH 5.5 5-9 Urine Specific [place] 1.010 L 1.016-1.022 Urine Protein NEGATIVE NEGATIVE Urine Glucose (UA) NEGATIVE NEGATIVE Urine Ketones NEGATIVE NEGATIVE Urine Nitrite NEGATIVE NEGATIVE Urine Bilirubin NEGATIVE NEGATIVE Urine Urobilinogen 0.2 < = 1.0 MG/DL Urine Leukocyte Esterase 1+ H NEGATIVE Urine RBC (Auto) NEGATIVE NEGATIVE Urine RBC NONE /HPF Urine WBC 2-5 /HPF Urine Squamous Epithelial Cells 0-2 /HPF Urine Crystals NONE /LPF Urine Bacteria TRACE /HPF Urine Casts PRESENT /LPF Urine Hyaline Casts RARE /LPF Urine Mucus SMALL H /LPF Urine Culture Indicated NO My Orders Orders - JANES NELSON MD [facility] [place] (04/29/21 13:28) Cbc With Automated Diff (04/29/21 13:28) Comprehensive Metabolic Panel (04/29/21 13:28) Ed Iv/Invasive Line Start (04/29/21 13:28) Thyroid Stimulating Hormone (04/29/21 13:57) Free T4 (Free Thyroxine) (04/29/21 13:57) Ua Culture If Indicated (04/29/21 13:57) Fentanyl Inj (Sublimaze Injection) (04/29/21 14:00) Ct Abdomen/Pelvis W (04/29/21 14:35) Iohexol Injection (Omnipaque 350 Mg/Ml 1 (04/29/21 14:45) Received Contrast (Hold Metformin- Contr (04/29/21 14:45) Ns (Ivpb) (Sodium Chloride 0.9% Ivpb Bag (04/29/21 14:45) Medications Given in ED Vital Signs/I&O 04/29/21 04/29/21 13:00 15:52 Temp 36.4 36.4 Pulse 68 68 Resp 18 18 B/P (MAP) 98/61 (73) 98/61 Pulse Ox 99 99 Capillary Refill : Less Than 3 Seconds Blood Pressure Mean: 73 Progress Note : Progress Note Pain was treated with fentanyl. CT scan revealed specific cause of her pain was identified. She does have a compression deformity at L1 which seems too high to be the etiology of her pain today. CT was obtained due to this new pain and her history of multiple neoplastic disorders without any recent scans performed. Patient does have a pending MRI scheduled with her primary care team. She was encouraged to pursue that a tramadol prescription was provided to help cover her pain management until she can get back in with her primary care provider. Diagnostic Imaging Diagonstic Imaging: CT Plain Films/CT/US/NM/MRI: abdomen, pelvis Comments CT abdomen and pelvis viewed by me and report reviewed. No specific cause of her pain was identified. She does have a compression deformity at L1 which seems too high to be the etiology of her pain today. CT was obtained due to this new pain and her history of multiple neoplastic disorders without any recent scans performed. Departure Impression Primary Impression: Compression fracture of L1 lumbar vertebra Qualified Codes: S32.010A - Wedge compression fracture of first lumbar vertebra, initial encounter for closed fracture Additional Impressions: Low back pain Qualified Codes: M54.50 - Low back pain, unspecified Lower extremity edema Urinary frequency Disposition: 01 HOME, SELF-CARE Condition: Improved Departure-Patient Inst. Decision time for Depature: 15:40 Referrals: NO,LOCAL PHYSICIAN (PCP/Family) Primary Care Physician Patient Instructions: Vertebral Compression Fracture Add. Discharge Instructions: You may continue using Tylenol (acetaminophen) up to 1000 mg every 6 hours as needed and or Ultram (tramadol) as prescribed for pain. Follow-up with your primary care to you as soon as possible and continue to pursue MRI of your lower back. The MRI will help determine if there are further treatments that can be used for the compression fracture or if there are other causes for your back issues and leg problems. No specific cause of your leg swelling was identified. Elevate your feet when at rest. Avoid excess salt in your diet. Call with questions or concerns. Return to the ER if you have worsening symptoms. All discharge instructions reviewed with patient and/or family. Voiced understanding. Scripts Tramadol HCl (Ultram) 50 Mg Tablet 50 MG PO QID PRN for PAIN-BREAKTHROUGH, #10 TAB Prov: JANES NELSON MD 04/29/21 JANES NELSON MD Apr 29, 2021 15:45
[2021-04-29 15:52] VITALS: BP 98/61
[2021-04-29 16:04] LABS: BACTERIA,URINE TRACE /HPF; HYALINE CASTS, URINE RARE /LPF; SQUAMOUS EPITHELIAL CELL,UR 0-2 /HPF
== END 2021-04-29 15:52 | disposition home or self-care (01) ==
LOC: EDUNIT# 12:51 → ER 12:53
DX: S32.010A Wedge compression fracture of first lumbar vertebra, initial encounter for closed fracture (principal); R60.9 Edema, unspecified; R35.0 Frequency of micturition; I10 Essential (primary) hypertension; E78.00 Pure hypercholesterolemia, unspecified; K21.9 Gastro-esophageal reflux disease without esophagitis; E03.9 Hypothyroidism, unspecified; F41.9 Anxiety disorder, unspecified; F31.9 Bipolar disorder, unspecified; Z79.890 Hormone replacement therapy; Z79.899 Other long term (current) drug therapy; X58.XXXA Exposure to other specified factors, initial encounter
CPT/HCPCS: 36415; 74177; 80053; 81000; 83880; 84439; 84443; 85025